=== PATIENT | male | born 2000 | race African-American/Black ===

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

== ENCOUNTER 2022-01-18 21:33 | Emergency (ER) | payer OTHER ==
[~2022-01-18] VITALS: Ht 167.6 cm; Wt 73.0 kg
[~2022-01-18 21:33] MED LIST changes: +CITRATE OF MEGNESIA PO; +MIRALAX17 GM PO
[2022-01-18] MEDS ORDERED: PREDNISONE50 MG PO (22:30)
[2022-01-18 22:50] VITALS: BP 160/90
== END 2022-01-18 23:00 | disposition home or self-care (01) ==
LOC: ED 21:33
DX: T78.1XXA Other adverse food reactions, not elsewhere classified, initial encounter (principal); R06.2 Wheezing; R06.00 Dyspnea, unspecified; J45.909 Unspecified asthma, uncomplicated; X58.XXXA Exposure to other specified factors, initial encounter

== ENCOUNTER → 2022-05-27 | Emergency (ER) | payer OTHER | END | disposition home or self-care (01) | DRG 951 | LOC: ED 19:27 → LWOBS 21:20 | DX: Z53.21 Procedure and treatment not carried out due to patient leaving prior to being seen by health care provider (principal) ==

== ENCOUNTER 2022-10-25 21:10 | Emergency (ER) | payer OTHER ==
[~2022-10-25] VITALS: Ht 167.6 cm; Wt 80.0 kg
[2022-10-25 21:42] VITALS: BP 136/106
[2022-10-25 21:45] VITALS: BP 140/92
[2022-10-25 22:25] LABS: BASO% 0.2 % (0-3); EOS% 3.6 % (0-8); HEMATOCRIT 50.6 % (39.0-50.0); HEMOGLOBIN 16.9 g/dl (14.0-18.0); IMMATURE GRANULOCYTES 0.3 % (0.0-5.0); LYMPH% 16.8 % (15-41); MEAN CELL VOLUME 80.7 fL CALC (80.0-100.0); MEAN CORPUSCULAR HGB CONC 33.4 g/dL CAL (32.0-36.0); MONO% 6.7 % (2-13); NEUT# 10.11 thou/uL (1.82-7.42); NEUT% 72.4 % (42-76); RED BLOOD COUNT 6.27 mill/uL (4.70-6.10); RED CELL DISTRI WIDTH 12.8 % (11.5-15.5)
[2022-10-25] MEDS ORDERED: PREDNISONE50 MG PO (22:43)
[2022-10-25 22:45] VITALS: BP 140/92
== END 2022-10-25 23:04 | disposition home or self-care (01) ==
LOC: ED 21:10
PROVIDERS: Family Medicine
DX: J45.901 Unspecified asthma with (acute) exacerbation (principal)

== ENCOUNTER 2023-04-12 16:38 | Emergency (ER) | payer SELFPAY ==
[~2023-04-12] VITALS: Ht 167.6 cm; Wt 77.0 kg
[2023-04-12 19:07] LABS: BASO% 0.2 % (0-3); EOS% 1.3 % (0-8); HEMATOCRIT 54.4 % (39.0-50.0); HEMOGLOBIN 17.9 g/dl (14.0-18.0); IMMATURE GRANULOCYTES 0.1 % (0.0-5.0); LYMPH% 18.2 % (15-41); MEAN CORPUSCULAR HGB 26.6 pG CALC (26.0-32.0); MEAN CORPUSCULAR HGB CONC 32.9 g/dL CAL (32.0-36.0); MONO% 6.8 % (2-13); NEUT# 8.82 thou/uL (1.82-7.42); NEUT% 73.4 % (42-76); RED BLOOD COUNT 6.72 mill/uL (4.70-6.10); RED CELL DISTRI WIDTH 12.5 % (11.5-15.5)
[2023-04-12 19:19] LABS: ALBUMIN 4.9 g/dL (3.2-5.0); ALKALINE PHOSPHATASE 78 u/l (38-126); ANION GAP 14 (6-22 (CALC)); BILIRUBIN, TOTAL 0.6 mg/dL (0.2-1.3); BUN 8 mg/dL (9-20); BUN/CREATININE RATIO 7 (12-20 (CALC)); CARBON DIOXIDE 26 mmol/l (22-30); CHLORIDE 106 mmol/l (95-108); CREATININE 1.1 mg/dL (0.7-1.3); GFR FOR AFR.AMER. > 60 ML/MIN (>=60 (CALC)); GFR OTHER RACES > 60 ML/MIN (>=60 (CALC)); POTASSIUM 4.2 mmol/l (3.5-5.1); SGOT/AST 40 u/l (17-59); SODIUM 141 mmol/l (137-146); TOTAL PROTEIN 8.7 g/dL (6.3-8.2)
[2023-04-12] MEDS ORDERED: NEBULIZER KIT/TUBING IN (20:09)
[2023-04-12] MEDS ORDERED: PROAIR HFA IN (20:09)
[2023-04-12] MEDS ORDERED: ALBUTEROL SUL1.25 MG IN (20:09)
[2023-04-12] MEDS ORDERED: PREDNISONE20 MG PO (20:09)
[2023-04-12] MEDS ORDERED: ZPAK PO (20:09)
[2023-04-12 20:26] VITALS: BP 147/92
== END 2023-04-12 20:52 | disposition home or self-care (01) | DRG 203 ==
LOC: ED 16:38
PROVIDERS: Nurse Practitioner
DX: J45.901 Unspecified asthma with (acute) exacerbation (principal); T48.996A Underdosing of other agents primarily acting on the respiratory system, initial encounter; Z91.128 Patient's intentional underdosing of medication regimen for other reason; Z20.822 Contact with and (suspected) exposure to COVID-19

== ENCOUNTER 2023-04-13 00:55 | Emergency (ER) | payer SELFPAY ==
[~2023-04-13] VITALS: Ht 167.6 cm; Wt 85.0 kg
[~2023-04-13 00:55] MED LIST changes: +ALBUTEROL SUL1.25 MG IN; +NEBULIZER KIT/TUBING IN; +PREDNISONE20 MG PO; +PROAIR HFA IN
[2023-04-13 01:21] VITALS: BP 143/86
[2023-04-13 01:30] VITALS: BP 123/67
[2023-04-13 02:00] VITALS: BP 122/71
[2023-04-13 02:31] VITALS: BP 127/110
[2023-04-13 03:01] VITALS: BP 79/51
[2023-04-13 05:05] VITALS: BP 105/78
== END 2023-04-13 05:05 | disposition home or self-care (01) | DRG 203 ==
LOC: ED 00:55
DX: J45.901 Unspecified asthma with (acute) exacerbation (principal)

== ENCOUNTER 2023-11-08 16:18 | Emergency (ER) | payer MEDICAID ==
[~2023-11-08] VITALS: Ht 167.6 cm; Wt 77.0 kg
[2023-11-08 16:27] VITALS: BP 135/90
[2023-11-08] MEDS ORDERED: IPRATROPIUM-Albuterol 0.5MG-2.5MG/3 ML NEB ONE (16:30)
[2023-11-08] MEDS ORDERED: methylPREDNISolone SODIUM SUCC 125 MG/2 ML SDV IV ONE (16:30)
[2023-11-08 16:31] VITALS: BP 148/80
[2023-11-08] MEDS ORDERED: MAGNESIUM SULFATE HEPTAHYDRATE 50 ML IV ONE (16:40)
[2023-11-08 16:42] VITALS: BP 136/87
[2023-11-08 16:53] LABS: BASO% 0.1 % (0-3); EOS% 5.1 % (0-8); HEMATOCRIT 55.1 % (39.0-50.0); HEMOGLOBIN 17.9 g/dl (14.0-18.0); IMMATURE GRANULOCYTES 0.3 % (0.0-5.0); LYMPH% 21.9 % (15-41); MEAN CELL VOLUME 81.6 fL CALC (80.0-100.0); MEAN CORPUSCULAR HGB 26.5 pG CALC (26.0-32.0); MEAN CORPUSCULAR HGB CONC 32.5 g/dL CAL (32.0-36.0); MONO% 5.9 % (2-13); NEUT# 4.83 thou/uL (1.82-7.42); NEUT% 66.7 % (42-76); RED BLOOD COUNT 6.75 mill/uL (4.70-6.10); RED CELL DISTRI WIDTH 12.8 % (11.5-15.5)
[2023-11-08 17:00] VITALS: BP 131/85
[2023-11-08 17:03] LABS: ALBUMIN 4.8 g/dL (3.2-5.0); BILIRUBIN, TOTAL 0.7 mg/dL (0.2-1.3); CREATININE 1.2 mg/dL (0.7-1.3); POTASSIUM 3.9 mmol/l (3.5-5.1); TOTAL PROTEIN 8.5 g/dL (6.3-8.2)
[2023-11-08 17:30] VITALS: BP 147/89
[2023-11-08] MEDS ORDERED: MEDDOSEPAK PO (18:03)
[2023-11-08 18:07] VITALS: BP 147/89
== END 2023-11-08 18:14 | disposition home or self-care (01) ==
LOC: ED 16:18
PROVIDERS: Nurse Practitioner
DX: J45.901 Unspecified asthma with (acute) exacerbation (principal); Z20.822 Contact with and (suspected) exposure to COVID-19
CPT/HCPCS: J3475